=== PATIENT | female | born 2005 | race Caucasian/White ===

== ENCOUNTER 2025-02-14 14:55 | Emergency (ER) | payer OTHER, SELFPAY ==
[2025-02-14 15:02] VITALS: BP 119/72
[2025-02-14 17:00] VITALS: BMI 27.5
[2025-02-14] MEDS: NSS 1000 IV (17:09)
[2025-02-14 17:26] LABS: % Basophils 0.7 % (0-2); % Eosinophils 1.1 % (0-6); % Immature Granulocytes 0.2 % (0-0.5); % Lymphocytes 32.8 % (20.5-51.1); % Monocytes 10.1 % (1.7-9.3); % Neutrophils 55.1 % (42.2-75.2); Absolute Basophils 0.1 10^3/uL (0-0.2); Absolute Eosinophils 0.1 10^3/uL (0-0.7); Absolute Lymphocytes 2.6 10^3/uL (1.2-3.4); Absolute Monocytes 0.8 10^3/uL (0.1-0.6); Absolute Neutrophils 4.4 10^3/uL (1.4-6.5); Hematocrit 37.8 % (37.0-47.0); Hemoglobin 13.4 g/dL (12.0-16.0); Mean Corp Hgb Conc. 35.4 g/dL (33.0-37.0); Mean Corpuscular Hgb 30.6 pg (27.0-31.0); Mean Corpuscular Volume 86.3 fL (81.0-99.0); Mean Platelet Volume 10.3 fL (7.4-10.4); Nucleated Red Blood Cells % 0 %; Platelet Count 317 10^3/uL (130-400); Red Blood Cell Count 4.38 10^6/uL (4.20-5.40); Red Cell Dist. Width 11.9 % (11.5-14.5)
[2025-02-14 17:35] LABS: HCG, Serum Qualitative Screen Negative
[2025-02-14 17:49] LABS: ALT (SGPT) 12 U/L (0-35); AST (SGOT) 16 U/L (14-36); Albumin 4.2 g/dl (3.5-5.0); Alkaline Phosphatase 58 U/L (38-126); Blood Urea Nitrogen 10 mg/dl (7-17); Calcium 9.1 mg/dl (8.4-10.2); Carbon Dioxide 21 mmol/L (22-30); Chloride 112 mmol/L (98-107); Estimated Creatinine Clearance > 125 ml/min; Glucose 79 mg/dl (70-99); Potassium 4.3 mmol/L (3.5-5.1); Sodium 140 mmol/L (135-145); Total Bilirubin 0.6 mg/dl (0.2-1.3); eGFR > 60.00
[2025-02-14 18:19] VITALS: BP 108/60
[2025-02-14 19:00] VITALS: BP 112/60
[2025-02-14 20:00] VITALS: BP 113/78
--- NOTE | 2025-02-14 22:18 | ED.GENMED ---
History of Present Illness
General
Chief Complaint: Fainting/Passed Out
Source: patient
Exam Limitations: none
Time Seen by Provider: 02/14/25 16:15
Nursing documentation reviewed up to this point in time: agreed with
History of Present Illness
History of Present Illness:
Patient to ED with complaint of syncope States she has a history of POTs and when this is aggravated she develops syncope. States IV infusions have helped her in the past. SHe denies feveer/chills, n/v/d. No recent illness. VSS. Dropped off by
mother for emilia
Past History
Past History
ED Past Medical History: Other (POTS)
Review of Systems
Review of Systems
Allergies reviewed?: Yes
All Other Systems: ROS reviewed and negative except as documented in HPI and ROS
Constitutional: Reports no symptoms
EENT: Reports no symptoms
Respiratory: Reports no symptoms
Cardiac: Reports syncope
ABD/GI: Reports no symptoms
: Reports no symptoms
Musculoskeletal: Reports no symptoms
Skin: Reports no symptoms
Neurological: Reports weakness
Psychiatric: Reports no symptoms
Phy Exam
General Physical Exam
General Presentation: well appearing and no apparent distress
General age: appears stated age
General Skin: warm and dry
General Habitus: normal
General Mental: alert
General Hydration: appears well hydrated
Cardiovascular Exam
Cardiovascular Exam: regular rate/rhythm and no edema
Pulmonary Exam
Pulmonary Exam: no respiratory distress and chest non tender
Neurological Exam
Neurological Exam: alert, oriented x3, CN II-XII intact, no motor deficits, no sensory deficits and speech normal
Musculoskeletal Exam
Musculoskeletal Exam: full ROM and neuro vasc intact
Skin Exam
Skin Exam: normal color, warm/dry and no rash
Psychiatric Exam
Psychiatric Exam: normal mood/affect
Course
Orders/Labs/Results
Orders:
Orders
02/14/25 15:07
Electrocardiogram (*1) Urgent
Reason for Study: Syncope
EKG- Treatment ONCE
02/14/25 15:08
Test Result ONCE
02/14/25 16:59
0.9% Sodium Chloride 1000 ml [Nss] 1,000 ml IV BOLUS
02/14/25 17:10
Complete Blood Count/With Diff Urgent
Comprehensive Metabolic Panel Urgent
, Serum Qualitative Screen [HCG, Serum Qualitative Screen] Urgent
Abnormal Lab Results
02/14/25
17:10
Absolute Monos (auto) 0.8 H 10^3/uL
(0.1-0.6)
Monocytes % 10.1 H %
(1.7-9.3)
Chloride 112 H mmol/L
(98-107)
Carbon Dioxide 21 L mmol/L
(22-30)
02/14/25 17:10
02/14/25 17:10
Vital Signs
Initial and Last Documented VS:
Initial Vital Signs
Temp Pulse Resp BP Pulse Ox
98.6 F 89 18 119/72 98
02/14/25 15:02 02/14/25 15:02 02/14/25 15:02 02/14/25 15:02 02/14/25 15:02
Last Documented Vital Signs
Temp Pulse Resp BP Pulse Ox
98.6 F 52 21 113/78 100
02/14/25 15:02 02/14/25 20:45 02/14/25 20:45 02/14/25 20:00 02/14/25 22:22
*Pulse Oximetry
SaO2: 100
Oxygen Mode of Delivery: Room air
Patient hypoxic: no
*EKG
Rate: normal
Rhythm: sinus
*Critical Care Note
Total Time (30-74mins, 75-104mins- exclusive of procedures): Not Applicable
Update Note
Update Note:
Patient to ED with complaint of exacerbation of POTS, requesting IV fluids. Given 1L NSS, VSS. Labs reviewed, no concerning findings. EKG NSR. Requesting RX for in-home infusions. I referred her back to her PCP for this. She will be discharged
home and will call PCP in AM. Given instructions on s/s to return to ED and she is agreeable to plan.
ED Attending Note
-
Portions of this chart may have been created with voice recognition software.� Occasional wrong word or��sound alike� substitutions may have occurred due to the inherent limitations of voice recognition software.
Discharge Plan
Departure
Patient Disposition: Home (Routine Discharge)
Date of Disposition: 02/14/25
Time of Disposition: 20:47
Patient with high blood pressure during this ER visit?: No
Condition: Good
Covid-19: Not Applicable
Discharge Problem:
Syncope
Instructions: Syncope (Fainting) (DC)
Referrals:
Meagan Veras MD [Family Provider, Internal Medicine] - Tomorrow
Interventions
Interventions:
*Risk Screen - Suicide Last Done: 02/14/25 15:02
*General Assessment Last Done: 02/14/25 15:02
*Neglect/Abuse Screening Last Done: 02/14/25 15:02
*ED- Fall Risk Assessment Last Done: 02/14/25 17:00
*ED COVID-19 Vaccine History Last Done: 02/14/25 17:00
*Nursing Disposition Last Done: 02/14/25 20:56
ED- Cardiac Assessment Last Done: 02/14/25 17:41
ED- Neurological Assessment Last Done: 02/14/25 17:41
Discharge Date and Time
Discharge Date/Time: 02/14/25 21:00
Print Language: AZERI
== END 2025-02-14 21:00 | disposition home or self-care (01) ==
LOC: EMR 14:55
PROVIDERS: EMERGENCY PHYSICIAN Emergency Medicine; FAMILY PHYSICIAN Student in an Organized Health Care Education/Training Program
DX: R55 Syncope and collapse (principal); G90.A Postural orthostatic tachycardia syndrome [POTS]
CPT/HCPCS: 96360; 99284; 80053; 84703; 85025; 93005

== ENCOUNTER 2025-08-24 18:41 | Emergency (ER) | payer OTHER, SELFPAY ==
[2025-08-24 19:35] LABS: Hematocrit 42.7 % (37.0-47.0); Hemoglobin 15.0 g/dL (12.0-16.0); Mean Corp Hgb Conc. 35.1 g/dL (33.0-37.0); Mean Corpuscular Volume 87.0 fL (81.0-99.0); Nucleated Red Blood Cells % 0 %; Platelet Count 382 10^3/uL (130-400); Red Cell Dist. Width 11.6 % (11.5-14.5)
[2025-08-24 19:42] LABS: COVID-19 Antigen Negative (Negative)
[2025-08-24 19:50] LABS: ALT (SGPT) 18 U/L (0-35); AST (SGOT) 19 U/L (14-36); Albumin 4.8 g/dl (3.5-5.0); Alkaline Phosphatase 105 U/L (38-126); Blood Urea Nitrogen 13 mg/dl (7-17); Calcium 9.4 mg/dl (8.4-10.2); Carbon Dioxide 24 mmol/L (22-30); Chloride 105 mmol/L (98-107); Glucose 113 mg/dl (70-99); Potassium 4.2 mmol/L (3.5-5.1); Sodium 137 mmol/L (135-145); Total Protein 8.1 g/dl (6.3-8.2); eGFR > 60.00
[2025-08-24 21:49] VITALS: BMI 30.8
[2025-08-24 21:54] VITALS: BP 133/94
[2025-08-24] MEDS: ATARAX 10 MG PO (23:09)
[2025-08-24] MEDS: DECADRON 10 MG PO (23:09)
[2025-08-25] MEDS: BENADRYL 25 MG PO (01:11)
[2025-08-25 01:32] VITALS: BP 135/77
--- NOTE | 2025-08-25 02:27 | ED.GENMED ---
History of Present Illness
General
Chief Complaint: Skin Problem
Source: patient
Exam Limitations: none
Time Seen by Provider: 08/24/25 22:32
Nursing documentation reviewed up to this point in time: agreed with
History of Present Illness
History of Present Illness:
Note:
CHIEF COMPLAINT(S)
Generalized rash over the body, onset July 29, progressively worsening.
HISTORY OF PRESENT ILLNESS
The patient is a 20-year-old female presenting with a widespread rash that began on July 29, initially localized to the stomach and progressively spreading across the body. She mentioned that it began about a week after a separate illness that
included a fever around [facility] and again at [place]. She was treated with a previous course of steroids, which temporarily improved the symptoms, but the rash recurred and worsened. The patient described the rash as absent from the oral
mucosa and genital area. She reported that the use of diphenhydramine only marginally reduced the redness without alleviating the rash itself, also causing significant drowsiness. She denies any current fever. The patient has been seen by a
percussion welding machine operator. Additionally, she notes skin irritation on her head. There is concern for possible dehydration, given an observed fast heart rate. She has a history of postural orthostatic tachycardia syndrome (POTS).
SOCIAL DETERMINANTS AFFECTING HEALTH
The patient attends college and has regular exposure to various environments, as her mother works at an elementary school, potentially increasing exposure to different irritants or pathogens.
REVIEW OF SYSTEMS
- Skin: Rash covering the stomach and general body area, sparing oral and genital mucosa.
- Constitutional: Fever noted around previous holidays.
- Cardiovascular: History of fast heart rate, associated with POTS.
PHYSICAL EXAM
General: Alert, anxious upon arrival.
Skin: Maculopapular rash present, predominant on the stomach and body, sparing mucosal areas. There is eczema on the forehead. Multiple piercings on the lip.
Psychological: Normal affect
Cardiovascular: Increased heart rate observed initially, potentially due to anxiety or dehydration.
Pulmonology: Lungs clear to station bilaterally without wheezes rales or rhonchi
PROBLEM LIST
- Acute: Generalized rash
- Chronic: Postural orthostatic tachycardia syndrome
PLAN
- Initiate a stronger regimen of oral steroids (prednisone 50 mg for four days) for the rash.
- Administer diphenhydramine and hydroxyzine to manage symptoms.
- Perform an electrocardiogram to evaluate heart rate abnormalities.
- Advise the patient to follow-up with a percussion welding machine operator for ongoing management of the skin condition.
DIFFERENTIAL DIAGNOSIS
The Differential Diagnosis includes, in no particular order and is not limited to:
1. Contact dermatitis
2. Psoriasis flare
3. Drug reaction
4. Viral exanthem
5. Eczema
6. Photodermatitis
7. Autoimmune skin disorder
8. Urticaria
9. Pityriasis rosea
10. Fungal infection
Disposition:
SUMMARY OF ENCOUNTER
The patient is a 20-year-old female with a history of psoriasis and postural orthostatic tachycardia syndrome (POTS) who presented with a rash on her torso that began on July 29. The rash does not involve the oral mucosa. She was previously
seen in urgent care and tested negative for strep, flu, and COVID-19. She had an intermittent fever early on and again on August 19. The rash initially improved with steroids but returned after the course was completed. During her emergency
department visit, she reported no respiratory distress. She received dexamethasone and diphenhydramine, which provided symptom relief. Laboratory tests performed in the ED were normal.
DISPOSITION
Discharge.
ASSESSMENT
The patient is experiencing a recurrent rash likely secondary to psoriasis exacerbation.
EMERGENCY TREATMENTS ADMINISTERED
Dexamethasone and diphenhydramine were administered in the emergency department.
PLAN
The patient will be discharged with a prescription for oral prednisone 40 mg daily for four days. She is advised to follow up with her percussion welding machine operator at [place] for ongoing management.
FOLLOW-UP INSTRUCTIONS
The patient should follow up with her percussion welding machine operator at [place].
MEDICATION RECONCILIATION
Prescription for prednisone 40 mg daily for four days provided.
MEDICAL DECISION MAKING
-Complexity of Data Reviewed: Chronic conditions affecting care include psoriasis and POTS. Differential diagnosis considers contact dermatitis, psoriasis flare, drug reaction, viral exanthem, eczema, photodermatitis, autoimmune skin disorder,
urticaria, pityriasis rosea, and fungal infection.
-Data:
Category 1:
Lab tests performed and reviewed were normal in the emergency department.
Category 2:
My independent interpretation of testing indicates that strep, flu, and COVID-19 tests were negative previously.
-Risk:
'Consideration of Admission/Observation: Escalation of care including admission/observation was considered given the complexity and risk of the patients presenting complaint, exam findings, and her underlying comorbidities. However, ultimately I
feel the patient is safe for outpatient management with close follow-up. Reasoning: Work-up is reassuring, does not reveal any acute life/organ-threatening processes, patients symptoms are well controlled upon reevaluation, reexamination is
reassuring, vitals are stable, patient agreeable with discharge, reliable for follow-up.'
DIAGNOSIS
Recurrent rash, likely secondary to psoriasis exacerbation (L40.0).
Past History
Past History
ED Past Medical History: Other (POTS)
Phy Exam
Physical Exam
Physical Exam:
.
Course
Orders/Labs/Results
Orders:
Orders
08/24/25 18:56
Electrocardiogram (*1) Urgent
Reason for Study: Tachycardia
EKG- Treatment ONCE
08/24/25 19:10
COVID-19 Antigen Urgent
Source: Nasal Swab
INF RAPID [Influenza A+B Rapid Molecular] Urgent
MIK Source: Nasal Swab
Specimen Description:
08/24/25 19:15
Complete Blood Count/With Diff Urgent
Comprehensive Metabolic Panel Urgent
Monotest Urgent
08/24/25 22:46
Dexamethasone Pf [Decadron] 10 mg PO NOW STA
HydrOXYZINE [Atarax] 10 mg PO NOW STA
08/25/25 00:55
Diphenhydramine [Benadryl] 25 mg PO NOW STA
08/25/25 01:33
Electrocardiogram (*1) Urgent
Reason for Study: Tachycardia
EKG- Treatment ONCE
Abnormal Lab Results
08/24/25
19:15
Absolute Monos (auto) 0.9 H 10^3/uL
(0.1-0.6)
Glucose 113 H mg/dl
(70-99)
08/24/25 19:15
08/24/25 19:15
Vital Signs
Initial and Last Documented VS:
Initial Vital Signs
Temp Pulse Resp Pulse Ox
98.0 F 161 20 99
08/24/25 18:44 08/24/25 18:44 08/24/25 18:44 08/24/25 18:44
Last Documented Vital Signs
Temp Pulse Resp BP Pulse Ox
98.1 F 87 16 135/77 95
08/24/25 21:54 08/25/25 01:32 08/25/25 01:32 08/25/25 01:32 08/25/25 02:29
*Pulse Oximetry
SaO2: 95
Oxygen Mode of Delivery: Room air
Patient hypoxic: no
*Critical Care Note
Total Time (30-74mins, 75-104mins- exclusive of procedures): Not Applicable
ED Attending Note
-
Portions of this chart may have been created with voice recognition software.� Occasional wrong word or��sound alike� substitutions may have occurred due to the inherent limitations of voice recognition software.
Discharge Plan
Departure
Patient Disposition: Home (Routine Discharge)
Date of Disposition: 08/25/25
Time of Disposition: 02:28
Patient with high blood pressure during this ER visit?: Yes
Condition: Good
Discharge Problem:
Rash, skin
Instructions: Skin Rash (DC)
Prescriptions:
New
prednisone 20 mg tablet
40 mg PO DAILY 4 Days Qty: 8 0RF
diphenhydramine HCl [Benadryl] 25 mg capsule
25 mg PO TID PRN (Reason: allergy symptoms) Qty: 14 0RF
Referrals:
Meagan Veras MD [Family Provider, Internal Medicine]
Activity Restrictions/Additional Instructions:
Thank You for choosing [facility].
It was a pleasure meeting you and taking part in your care. We hope for your continued healing and wellness.
Please read discharge instructions in their entirety. However, they are for general education and may not describe your exact diagnosis at discharge. Information on your ER visit and medical conditions were discussed with you along with appropriate
follow up information...
If indicated, please take your medications as instructed and indicated on discharge paperwork.
Please schedule a follow up appointment as directed. Call to schedule an appointment
Please return to the emergency department with ANY change in, persisting, or worsening of symptoms. If any of your symptoms do not improve, or persist, or become more severe within 6-12 hours, please return to the emergency department for further
care.
Please return to the emergency department if you develop a headache, neck pain/stiffness, fever greater than 100.4F, chest pain, shortness of breath, persistent nausea, vomiting, slurred speech, difficulty walking, numbness/tingling, weakness, signs
of infection or any other symptoms that are worrisome to you.
If you have any questions or concerns please do not hesitate to call the Hospital at .
Interventions
Interventions:
*General Assessment Last Done: 08/24/25 21:51
*Neglect/Abuse Screening Last Done: 08/24/25 18:44
*ED COVID-19 Vaccine History Last Done: 08/24/25 21:49
*ED Influenza Vaccine History Last Done: 08/24/25 21:49
[facility] Risk Assessment Tool Last Done: 08/24/25 21:49
*Risk Screen - Suicide (C-SSRS) Last Done: 08/24/25 21:49
*Nursing Disposition Last Done: 08/25/25 02:57
ED-Skin Assessment Last Done: 08/24/25 22:02
Discharge Date and Time
Discharge Date/Time: 08/25/25 02:58
Print Language: [email or web address]
== END 2025-08-25 02:58 | disposition home or self-care (01) ==
LOC: EMR 18:41
PROVIDERS: Emergency Medicine; EMERGENCY PHYSICIAN Student in an Organized Health Care Education/Training Program; FAMILY PHYSICIAN Student in an Organized Health Care Education/Training Program
DX: R21 Rash and other nonspecific skin eruption (principal); R03.0 Elevated blood-pressure reading, without diagnosis of hypertension; G90.A Postural orthostatic tachycardia syndrome [POTS]
CPT/HCPCS: 99284; 80053; 85025; 86308; 87502; 87811; 93005